=== PATIENT | female | born 1995 | race Caucasian/White ===

== ENCOUNTER 2016-10-10 14:53 | Emergency (ER) | payer MEDICAID ==
[~2016-10-10] VITALS: Ht 165.1 cm; Wt 56.7 kg
[2016-10-10 14:57] VITALS: BP 126/55
== END 2016-10-10 17:55 | disposition left against medical advice (07) ==
LOC: ED 14:53
DX: Z53.21 Procedure and treatment not carried out due to patient leaving prior to being seen by health care provider (principal)

== ENCOUNTER 2017-12-31 09:52 | Inpatient (IN) | payer MEDICAID ==
[~2017-12-31] VITALS: Ht 160 cm; Wt 56.5 kg
[2017-12-31 11:00] LABS: BASOPHIL % 0.6 % (0-2); PLATELET COUNT 336 x10^3mcL (130-400); RED CELL DISTRIBUTION WIDTH 12.5 % (11.5-14.5)
[2017-12-31 11:26] LABS: CALCIUM 9.5 mg/dL (8.5-10.1); CARBON DIOXIDE 22.7 mmol/L (21-32); CHLORIDE SERUM 101 mmol/L (98-107); CREATININE SERUM 0.9 mg/dL (0.6-1.0); GFR1 > 60 mL/min; GLUCOSE SERUM 81 mg/dL (74-106); POTASSIUM SERUM 3.5 mmol/L (3.5-5.1); SODIUM SERUM 137 mmol/L (136-145)
[2017-12-31 11:30] LABS: ALBUMIN 4.5 g/dL (3.4-5.0); ALKALINE PHOSPHATASE 64 U/L (46-116); ALT/SGPT 17 U/L (14-59); AST/SGOT 17 U/L (15-37); BILIRUBIN TOTAL 1.22 mg/dL (0.20-1.00); TOTAL PROTEIN, SERUM 7.9 g/dL (6.4-8.2)
[2017-12-31 15:25] LABS: MAGNESIUM 2.4 mg/dL (1.8-2.4); PHOSPHOROUS 3.5 mg/dL (2.5-4.9)
[2017-12-31 15:33] LABS: T3 TOTAL 1.06 ng/mL
[2017-12-31 15:34] LABS: FREE T4 1.33 ng/dL (0.76-1.46); FREE THYROXINE INDEX 3.8 ug/dL (1.4-4.5); T4(THYROXINE) 10.6 ug/dL (4.7-13.3)
[2017-12-31 16:05] VITALS: BP 117/77
[2017-12-31 16:07] VITALS: Ht 160 cm; Wt 56.5 kg
[2017-12-31 20:30] VITALS: BP 105/52
[2018-01-01 06:02] VITALS: BP 100/51
[2018-01-01 06:32] LABS: BASOPHIL % 0.1 % (0-2); PLATELET COUNT 289 x10^3mcL (130-400); RED CELL DISTRIBUTION WIDTH 12.7 % (11.5-14.5)
[2018-01-01 09:44] VITALS: BP 97/49
[2018-01-01 13:14] VITALS: BP 93/48
[2018-01-01 14:39] LABS: BASOPHIL % 0.5 % (0-2); PLATELET COUNT 290 x10^3mcL (130-400); RED CELL DISTRIBUTION WIDTH 12.7 % (11.5-14.5)
[2018-01-01 15:13] LABS: CALCIUM 8.4 mg/dL (8.5-10.1); CARBON DIOXIDE 23.6 mmol/L (21-32); CHLORIDE SERUM 106 mmol/L (98-107); CREATININE SERUM 0.8 mg/dL (0.6-1.0); GFR1 > 60 mL/min; GLUCOSE SERUM 92 mg/dL (74-106); POTASSIUM SERUM 3.5 mmol/L (3.5-5.1); SODIUM SERUM 138 mmol/L (136-145)
[2018-01-01] MEDS ORDERED: FLA500 PO (16:12)
[2018-01-01 17:45] VITALS: BP 93/48
== END 2018-01-01 17:50 | disposition left against medical advice (07) | DRG 566 ==
LOC: ED 09:52 → DU 13:33 → EDBEDREQ 13:35 → DU 15:48
PROVIDERS: General Practice; Specialist
DX: O21.0 Mild hyperemesis gravidarum (principal); D72.829 Elevated white blood cell count, unspecified; Z3A.01 Less than 8 weeks gestation of pregnancy; Z87.891 Personal history of nicotine dependence
CPT/HCPCS: 84439; J2405; J2543; J2765; J3490; J7030; J7042; Q0092

== ENCOUNTER 2018-01-09 06:37 | Emergency (ER) | payer MEDICAID ==
[~2018-01-09] VITALS: Ht 160 cm; Wt 54.4 kg
[~2018-01-09 06:37] MED LIST: FLA500 PO
[2018-01-09 06:42] VITALS: Ht 160 cm; Wt 54.4 kg
[2018-01-09 07:20] LABS: BASOPHIL % 0.3 % (0-2); PLATELET COUNT 363 x10^3mcL (130-400); RED CELL DISTRIBUTION WIDTH 12.4 % (11.5-14.5)
[2018-01-09 07:29] LABS: CALCIUM 9.3 mg/dL (8.5-10.1); CARBON DIOXIDE 15.4 mmol/L (21-32); CHLORIDE SERUM 103 mmol/L (98-107); CREATININE SERUM 0.8 mg/dL (0.6-1.0); GFR1 > 60 mL/min; GLUCOSE SERUM 89 mg/dL (74-106); POTASSIUM SERUM 3.1 mmol/L (3.5-5.1); SODIUM SERUM 139 mmol/L (136-145)
[2018-01-09 07:34] LABS: ALBUMIN 4.1 g/dL (3.4-5.0); ALKALINE PHOSPHATASE 53 U/L (46-116); ALT/SGPT 14 U/L (14-59); AST/SGOT 14 U/L (15-37); BILIRUBIN TOTAL 0.39 mg/dL (0.20-1.00); TOTAL PROTEIN, SERUM 7.4 g/dL (6.4-8.2)
[2018-01-09 08:10] LABS: UA SPECIFIC GRAVITY 1.025 (1.005-1.035); microscopic required? YES; urine erythrocyte TRACE (NEGATIVE)
[2018-01-09 15:47] LABS: BASOPHIL % 0.2 % (0-2); PLATELET COUNT 359 x10^3mcL (130-400); RED CELL DISTRIBUTION WIDTH 12.4 % (11.5-14.5)
[2018-01-09 17:18] VITALS: BP 110/59
== END 2018-01-09 17:18 | disposition home or self-care (01) ==
LOC: ED 06:37
PROVIDERS: Emergency Medicine Emergency Medical Services
DX: O26.891 Other specified pregnancy related conditions, first trimester (principal); Z3A.01 Less than 8 weeks gestation of pregnancy; R10.31 Right lower quadrant pain
CPT/HCPCS: J2270; J2405; Q0092

== ENCOUNTER 2018-06-20 16:33 | Emergency (ER) | payer MEDICAID ==
[~2018-06-20] VITALS: Ht 160 cm; Wt 50.8 kg
[2018-06-20 16:50] VITALS: BP 131/78; Ht 160 cm; Wt 50.8 kg
== END 2018-06-20 18:52 | disposition left against medical advice (07) ==
LOC: ED 16:33
DX: Z53.21 Procedure and treatment not carried out due to patient leaving prior to being seen by health care provider (principal)

== ENCOUNTER 2018-06-21 12:28 | Emergency (ER) | payer MEDICAID ==
[~2018-06-21] VITALS: Ht 160 cm; Wt 51.0 kg
[2018-06-21 12:37] VITALS: BP 124/69; Ht 160 cm; Wt 51.0 kg
== END 2018-06-21 14:28 | disposition home or self-care (01) ==
LOC: ED 12:28
DX: S61.210A Laceration without foreign body of right index finger without damage to nail, initial encounter (principal); S01.511A Laceration without foreign body of lip, initial encounter; F17.210 Nicotine dependence, cigarettes, uncomplicated; W22.8XXA Striking against or struck by other objects, initial encounter; Y93.01 Activity, walking, marching and hiking; Y92.89 Other specified places as the place of occurrence of the external cause; Y99.8 Other external cause status
CPT/HCPCS: 90715

== ENCOUNTER 2018-08-04 12:54 | Inpatient (IN) | payer MEDICAID ==
[~2018-08-04] VITALS: Ht 160 cm; Wt 49.9 kg
[2018-08-04 13:19] VITALS: Ht 160 cm; Wt 49.9 kg
[2018-08-04 14:18] LABS: BASOPHIL % 0.3 % (0-2); PLATELET COUNT 328 x10^3mcL (130-400); RED CELL DISTRIBUTION WIDTH 12.5 % (11.5-14.5)
[2018-08-04 14:33] LABS: CALCIUM 8.8 mg/dL (8.5-10.1); CARBON DIOXIDE 22.7 mmol/L (21-32); CHLORIDE SERUM 96 mmol/L (98-107); GFR1 > 60 mL/min; GLUCOSE SERUM 107 mg/dL (74-106); POTASSIUM SERUM 3.1 mmol/L (3.5-5.1); SODIUM SERUM 131 mmol/L (136-145)
[2018-08-04 14:37] LABS: ALKALINE PHOSPHATASE 64 U/L (46-116); ALT/SGPT 20 U/L (14-59); AST/SGOT 12 U/L (15-37); BILIRUBIN TOTAL 0.4 mg/dL (0.20-1.00); LIPASE 59 IU/L (73-393); TOTAL PROTEIN, SERUM 7.7 g/dL (6.4-8.2)
[2018-08-04 14:47] LABS: microscopic required? YES; urine erythrocyte 2+ (NEGATIVE)
[2018-08-04 17:19] LABS: MAGNESIUM 1.9 mg/dL (1.8-2.4)
[2018-08-04 17:20] LABS: CHOLESTEROL/HDL RATIO 3.5
[2018-08-04 17:26] LABS: AMPHETAMINE QUAL UR POSITIVE (See below)
[2018-08-04 17:27] LABS: T3 TOTAL 1.05 ng/mL
[2018-08-04 17:50] LABS: FREE T4 1.32 ng/dL (0.76-1.46); FREE THYROXINE INDEX 3.2 ug/dL (1.4-4.5); T4(THYROXINE) 8.9 ug/dL (4.7-13.3)
[2018-08-04 18:02] VITALS: BP 91/44
[2018-08-04 21:05] VITALS: BP 91/51
[2018-08-05 05:53] VITALS: BP 107/63
[2018-08-05 07:43] LABS: CALCIUM 8.1 mg/dL (8.5-10.1); CARBON DIOXIDE 21.8 mmol/L (21-32); CHLORIDE SERUM 101 mmol/L (98-107); CREATININE SERUM 0.9 mg/dL (0.6-1.0); GFR1 > 60 mL/min; GLUCOSE SERUM 91 mg/dL (74-106); POTASSIUM SERUM 3.8 mmol/L (3.5-5.1); SODIUM SERUM 135 mmol/L (136-145)
[2018-08-05 07:58] LABS: BASOPHIL % 0 % (0-2); PLATELET COUNT 331 x10^3mcL (130-400); RED CELL DISTRIBUTION WIDTH 12.6 % (11.5-14.5)
[2018-08-05 08:00] VITALS: BP 105/62
[2018-08-05 13:00] VITALS: BP 91/53
[2018-08-05 16:50] VITALS: BP 120/64
[2018-08-05 22:05] VITALS: BP 93/44
[2018-08-06 02:54] VITALS: BP 104/58
[2018-08-06 06:14] VITALS: BP 93/54
[2018-08-06 06:46] LABS: BASOPHIL % 0.3 % (0-2); PLATELET COUNT 331 x10^3mcL (130-400); RED CELL DISTRIBUTION WIDTH 12.7 % (11.5-14.5)
[2018-08-06 07:08] LABS: CALCIUM 8.5 mg/dL (8.5-10.1); CARBON DIOXIDE 25.9 mmol/L (21-32); CHLORIDE SERUM 106 mmol/L (98-107); CREATININE SERUM 0.8 mg/dL (0.6-1.0); GFR1 > 60 mL/min; GLUCOSE SERUM 100 mg/dL (74-106); PHOSPHOROUS 2.6 mg/dL (2.5-4.9); POTASSIUM SERUM 3.9 mmol/L (3.5-5.1); SODIUM SERUM 140 mmol/L (136-145)
[2018-08-06 08:41] VITALS: BP 108/60
[2018-08-06] MEDS ORDERED: KEFLEX500 M1 PO (09:41)
[2018-08-06] MEDS ORDERED: LAC PO (09:42)
[2018-08-06 11:57] VITALS: BP 103/59
[2018-08-06 12:02] VITALS: BP 108/60
== END 2018-08-06 14:15 | disposition home or self-care (01) | DRG 720 ==
LOC: ED 12:54 → MU 16:35 → DU 16:35 → MU 17:39 → DU 08-05 17:25
PROVIDERS: Emergency Medicine; ADMIT Family Medicine
DX: A41.9 Sepsis, unspecified organism (principal); N17.0 Acute kidney failure with tubular necrosis; E44.0 Moderate protein-calorie malnutrition; E87.1 Hypo-osmolality and hyponatremia; E83.39 Other disorders of phosphorus metabolism; N10 Acute pyelonephritis; E86.0 Dehydration; E87.6 Hypokalemia; R80.9 Proteinuria, unspecified; Z68.1 Body mass index [BMI] 19.9 or less, adult
CPT/HCPCS: 83880; 84439; 90658; J0696; J1885; J7030; Q0092

== ENCOUNTER 2019-05-10 18:20 | Emergency (ER) | payer MEDICAID ==
[~2019-05-10] VITALS: Ht 160 cm; Wt 53.1 kg
[~2019-05-10 18:20] MED LIST changes: +KEFLEX500 M1 PO; +LAC PO
[2019-05-10 18:44] VITALS: BP 96/54; Ht 160 cm; Wt 53.1 kg
== END 2019-05-10 20:21 | disposition left against medical advice (07) ==
LOC: ED 18:20
DX: Z53.21 Procedure and treatment not carried out due to patient leaving prior to being seen by health care provider (principal)

== ENCOUNTER 2019-07-23 02:23 | Emergency (ER) | payer MEDICAID ==
[~2019-07-23] VITALS: Ht 160 cm; Wt 51.8 kg
[2019-07-23 03:47] LABS: microscopic required? NO
[2019-07-23 04:26] LABS: UA SPECIFIC GRAVITY 1.025 (1.005-1.035); urine erythrocyte NEGATIVE (NEGATIVE)
[2019-07-23 04:30] LABS: ALBUMIN 3.4 g/dL (3.4-5.0); ALKALINE PHOSPHATASE 63 U/L (46-116); ALT/SGPT 13 U/L (14-59); AST/SGOT 11 U/L (15-37); BILIRUBIN TOTAL 0.32 mg/dL (0.20-1.00); CARBON DIOXIDE 24.5 mmol/L (21-32); CHLORIDE SERUM 102 mmol/L (98-107); CREATININE SERUM 0.5 mg/dL (0.6-1.0); GFR1 > 60 mL/min; GLUCOSE SERUM 80 mg/dL (74-106); POTASSIUM SERUM 4.1 mmol/L (3.5-5.1); SODIUM SERUM 137 mmol/L (136-145); TOTAL PROTEIN, SERUM 7.5 g/dL (6.4-8.2)
[2019-07-23 04:38] LABS: BASOPHIL % 1.4 % (0-2); PLATELET COUNT 449 x10^3mcL (130-400); RED CELL DISTRIBUTION WIDTH 12.3 % (11.5-14.5)
[2019-07-23 06:12] VITALS: BP 105/55
== END 2019-07-23 06:12 | disposition home or self-care (01) ==
LOC: ED 02:23
PROVIDERS: Emergency Medicine
DX: O26.892 Other specified pregnancy related conditions, second trimester (principal); R10.9 Unspecified abdominal pain; R30.0 Dysuria; Z3A.19 19 weeks gestation of pregnancy
CPT/HCPCS: 36415; Q0092

== ENCOUNTER 2019-12-25 00:09 | Emergency (ER) | payer MEDICAID ==
[~2019-12-25] VITALS: Ht 160 cm; Wt 58.5 kg
[2019-12-25 00:21] VITALS: Ht 160 cm; Wt 58.5 kg
[2019-12-25 02:53] VITALS: BP 101/66
== END 2019-12-25 02:53 | disposition home or self-care (01) ==
LOC: ED 00:09
DX: S02.2XXA Fracture of nasal bones, initial encounter for closed fracture (principal); S69.91XA Unspecified injury of right wrist, hand and finger(s), initial encounter; Y04.2XXA Assault by strike against or bumped into by another person, initial encounter; Y93.89 Activity, other specified; Y92.89 Other specified places as the place of occurrence of the external cause; Y99.8 Other external cause status